=== PATIENT | female | born 1960 | race Caucasian/White ===

== ENCOUNTER 2017-06-14 09:10 | Outpatient (RCR) | payer MEDICARE, MEDICAID ==
[~2017-06-14 09:10] MED LIST: AMLO5TAB2 PO; ASCO500T20 PO; ASP81CT PO; ATOR40TA PO; CALC-656 PO; MULT-608 PO; VITA-185 PO
[2017-06-14 09:42] LABS: BASOPHILS % (AUTO) 0 % (0-10); EOSINOPHILS % (AUTO) 0 % (0-10); LYMPHOCYTES # (AUTO) 1.5 X 10^3 (1.0-4.0); LYMPHOCYTES % (AUTO) 13 % (12-44); MEAN CORPUSCULAR HEMOGLOBIN 30 PG (25-34); MEAN CORPUSCULAR HGB CONC 32 G/DL (32-36); MEAN CORPUSCULAR VOLUME 92 FL (80-99); MEAN PLATELET VOLUME 9.8 FL (7.4-10.4); MONOCYTES # (AUTO) 1.2 X 10^3 (0.0-1.0); MONOCYTES % (AUTO) 10 % (0-12); NEUTROPHILS # (AUTO) 8.9 X 10^3 (1.8-7.8); NEUTROPHILS % (AUTO) 76 % (42-75); PLATELET COUNT 299 10^3/uL (130-400); RED BLOOD COUNT 3.92 10^6/uL (4.35-5.85); RED CELL DISTRIBUTION WIDTH 14.6 % (10.0-14.5); WHITE BLOOD COUNT 11.6 10^3/uL (4.3-11.0)
[2017-06-14 10:02] LABS: ALBUMIN 4.1 GM/DL (3.2-4.5); BILIRUBIN,TOTAL 0.2 MG/DL (0.1-1.0); CALCIUM 9.2 MG/DL (8.5-10.1); CREATININE SERUM 1.37 MG/DL (0.60-1.30); POTASSIUM 4.3 MMOL/L (3.6-5.0); TOTAL PROTEIN 6.9 GM/DL (6.4-8.2)
== END 2017-06-22 | disposition home or self-care (01) ==
LOC: ONC 09:10
PROVIDERS: ATTEND Internal Medicine Hematology & Oncology
DX: D50.0 Iron deficiency anemia secondary to blood loss (chronic) (principal); I12.9 Hypertensive chronic kidney disease with stage 1 through stage 4 chronic kidney disease, or unspecified chronic kidney disease; N18.9 Chronic kidney disease, unspecified; E78.5 Hyperlipidemia, unspecified; E03.9 Hypothyroidism, unspecified; F17.210 Nicotine dependence, cigarettes, uncomplicated; D72.829 Elevated white blood cell count, unspecified; G47.30 Sleep apnea, unspecified; E66.9 Obesity, unspecified; Z68.42 Body mass index [BMI] 45.0-49.9, adult; Z86.73 Personal history of transient ischemic attack (TIA), and cerebral infarction without residual deficits; Z79.02 Long term (current) use of antithrombotics/antiplatelets; Z79.899 Other long term (current) drug therapy
CPT/HCPCS: 36415; 80053; 85025; 99214

== ENCOUNTER → 2017-08-27 | Outpatient (CLI) | payer MEDICARE, MEDICAID ==
--- NOTE | 2017-08-27 12:38 | Diagnostic Imaging Report ---
PA and lateral views of the chest. INDICATION: Shortness of breath. FINDINGS: The heart size is moderately enlarged with slight prominence of the lung markings which could relate to minimal vascular congestion. No focal infiltrate. No effusion or pneumothorax. The mediastinum and dean appear unremarkable. IMPRESSION: Cardiomegaly with suggestion of mild vascular congestion. Dictated by: Dictated on workstation # [id number]
== END ==
LOC: RAD 11:31
PROVIDERS: ATTEND Internal Medicine Critical Care Medicine
DX: I51.7 Cardiomegaly (principal); J44.9 Chronic obstructive pulmonary disease, unspecified; G47.30 Sleep apnea, unspecified; E66.9 Obesity, unspecified; F17.200 Nicotine dependence, unspecified, uncomplicated
CPT/HCPCS: 71020

== ENCOUNTER 2017-09-12 21:13 | Outpatient (CLI) | payer MEDICARE, MEDICAID | END 2017-09-13 07:15 | disposition home or self-care (01) | LOC: SLEEP 21:13 | PROVIDERS: ATTEND Internal Medicine Critical Care Medicine | DX: G47.30 Sleep apnea, unspecified (principal); J44.9 Chronic obstructive pulmonary disease, unspecified; R06.02 Shortness of breath; E66.9 Obesity, unspecified; Z72.0 Tobacco use | CPT/HCPCS: 95810 ==

== ENCOUNTER → 2017-11-06 | Outpatient (CLI) | payer MEDICARE, MEDICAID ==
[~2017-11-06] MED LIST changes: +RT-ALBUTEROL SULF 2.5 MG/3 ML PRE-MIX VIAL INH ONE
== END ==
LOC: RT 11:35
PROVIDERS: ATTEND Internal Medicine Critical Care Medicine
DX: J44.9 Chronic obstructive pulmonary disease, unspecified (principal); R06.00 Dyspnea, unspecified; G47.30 Sleep apnea, unspecified; E66.9 Obesity, unspecified; Z72.0 Tobacco use
CPT/HCPCS: 94060; 94726; 94729

== ENCOUNTER 2017-11-09 20:32 | Outpatient (CLI) | payer MEDICARE, MEDICAID ==
[~2017-11-09 20:32] MED LIST changes: -RT-ALBUTEROL SULF 2.5 MG/3 ML PRE-MIX VIAL INH ONE
== END 2017-11-10 06:49 | disposition home or self-care (01) ==
LOC: SLEEP 20:32
PROVIDERS: ATTEND Nurse Practitioner Family
DX: G47.33 Obstructive sleep apnea (adult) (pediatric) (principal)
CPT/HCPCS: 95811

== ENCOUNTER → 2019-05-29 | Outpatient (CLI) | payer MEDICARE, MEDICAID ==
--- NOTE | 2019-05-29 23:14 | Diagnostic Imaging Report ---
INDICATION: [id number] smoking history, current smoker, for low-dose CT screening as a baseline exam. PROTOCOL: Low dose CT screening chest performed with multiplanar reconstructions. FINDINGS: No lung nodule or suspicious mass is found. There is mild cardiomegaly as well as prominence of the mediastinal fat. No focal pneumonia or pulmonary edema, however, pulmonary vascularity mildly distended. There are aortic atherosclerotic calcifications, nonaneurysmal. No acute chest wall pathology. IMPRESSION: 1A - Negative. No lung nodules. Continue annual screening with LDCT in 12 months. 1. No suspicious finding. Further followup with CT low-dose screening in one year's time recommended. 2. Mild cardiomegaly as well as borderline as well as mild prominence of the vascularity but no miroslava edema, pleural fluid or pneumonia. Dictated by: Dictated on workstation # [id number]
== END ==
LOC: RAD 13:16
PROVIDERS: ATTEND Nurse Practitioner Family
DX: I51.7 Cardiomegaly (principal); G47.30 Sleep apnea, unspecified; J44.9 Chronic obstructive pulmonary disease, unspecified; Z72.0 Tobacco use; Z87.891 Personal history of nicotine dependence

== ENCOUNTER → 2019-06-05 | Outpatient (CLI) | payer MEDICARE, MEDICAID | LOC: RT 05-29 13:13 | PROVIDERS: ATTEND Nurse Practitioner Family | DX: G47.30 Sleep apnea, unspecified (principal); J44.9 Chronic obstructive pulmonary disease, unspecified; Z72.0 Tobacco use ==

== ENCOUNTER → 2020-06-07 | Outpatient (CLI) | payer MEDICARE, MEDICAID ==
--- NOTE | 2020-06-07 17:02 | Diagnostic Imaging Report ---
EXAMINATION: CT Lung Screening. INDICATION: 42 pack-year smoking history. TECHNIQUE: Noncontrast, low-dose CT imaging performed according to the lung cancer screening protocol. Auto Exposure Controls were utilize during the CT exam to meet ALARA standards for radiation dose reduction. COMPARISON: 05/29/2019. FINDINGS: The previous CT low-dose lung cancer screening exam of 05/29/2019 noted cardiomegaly, coronary artery disease, and chronic pulmonary disease but failed to show any evidence for a parenchymal lung mass. On this exam, there is still no parenchymal lung mass identified. The chronic pulmonary changes seen on the prior study are again visualized and stable. The heart is also unchanged in size. The aorta is not abnormally dilated. There is no obvious mediastinal or hilar adenopathy. The thyroid gland is not well visualized. The breasts, where visualized, show no evidence for a mass lesion. The sections through the upper abdomen are unremarkable for an acute abnormality. The gallbladder is surgically absent. The bone windows show no evidence for a fracture or destructive lesion. IMPRESSION: 1. There is still no parenchymal lung mass identified. A followup low dose lung cancer screening exam in 1year would be recommended for further study. 2. There is cardiomegaly, coronary artery disease, and chronic pulmonary disease. There is no acute cardiopulmonary abnormality noted. LUNG-RADS CATEGORY: 1 MODIFIER: OTHER SIGNIFICANT FINDINGS: Dictated by: Dictated on workstation # [id number]
== END ==
LOC: RAD 15:57
PROVIDERS: ATTEND Nurse Practitioner Family
DX: Z12.2 Encounter for screening for malignant neoplasm of respiratory organs (principal); J44.9 Chronic obstructive pulmonary disease, unspecified; G47.30 Sleep apnea, unspecified; I51.7 Cardiomegaly; I25.10 Atherosclerotic heart disease of native coronary artery without angina pectoris; F17.210 Nicotine dependence, cigarettes, uncomplicated

== ENCOUNTER → 2020-09-06 | Outpatient (CLI) | payer MEDICARE, MEDICAID ==
[~2020-09-06] MED LIST changes: +CATHETER FLUSH 10 ML SYR IV PRN; +HOLD METFORMIN - RECEIVED CONTRAST 20 ML VIAL IV SCH; +IOHEXOL 350 MG/ML 100 ML (OMNIPAQUE 350) VIAL IV ONE; +NS 100 ML (IVPB) BAG IV ONE
[2020-09-06 14:04] LABS: CREATININE SERUM 3.15 MG/DL (0.60-1.30)
== END ==
LOC: RAD 13:15
PROVIDERS: ATTEND Nurse Practitioner Family
DX: J44.9 Chronic obstructive pulmonary disease, unspecified (principal)
CPT/HCPCS: 36415; 82565; 84520

== ENCOUNTER → 2020-09-20 | Outpatient (CLI) | payer MEDICARE, MEDICAID ==
[~2020-09-20] MED LIST changes: -HOLD METFORMIN - RECEIVED CONTRAST 20 ML VIAL IV SCH; -IOHEXOL 350 MG/ML 100 ML (OMNIPAQUE 350) VIAL IV ONE; -NS 100 ML (IVPB) BAG IV ONE
--- NOTE | 2020-09-20 13:51 | Diagnostic Imaging Report ---
INDICATION: Breast carcinoma. TECHNIQUE: The patient was administered 4.9 mCi of technetium 99m MAA intravenously and imaging over the chest was performed in multiple obliquities. FINDINGS: There appears to be homogeneous perfusion of both lungs. No pleural-based perfusion defects are identified. IMPRESSION: Normal perfusion lung scan. Dictated by: Dictated on workstation # [id number]
== END ==
LOC: CARD 10:23
PROVIDERS: ATTEND Nurse Practitioner Family
DX: Z03.89 Encounter for observation for other suspected diseases and conditions ruled out (principal); C50.919 Malignant neoplasm of unspecified site of unspecified female breast
CPT/HCPCS: 78580; A9540